=== PATIENT | male | born 1990 | race Caucasian/White ===

== ENCOUNTER 2018-08-05 15:30 | Outpatient (CLI) | payer MEDICAID, SELFPAY | END 2018-08-05 15:50 | PROVIDERS: PCP Family Medicine; Referring Provider Nurse Practitioner Family; Visit Provider Internal Medicine Infectious Disease | DX: B20 Human immunodeficiency virus [HIV] disease (principal); Z79.899 Other long term (current) drug therapy | CPT/HCPCS: 99215 ==

== ENCOUNTER 2018-09-09 10:03 | Outpatient (CLI) | payer MEDICAID, SELFPAY ==
--- NOTE | 2018-09-09 10:59 | DI.RAD_ITS ---
SYMPTOMS/DIAGNOSIS: DYSPNEA, PLEURAL EFFUSION, WT LOSS, B20, Z79.899, IMMUNOCOMPROMISED, SPLENOMEGALY, T CELL COUNT OF 34 PA AND LATERAL CHEST: No priors. The heart size and pulmonary vasculature are within normal limits. There are coarse lung markings seen in the right lower lobe. No focal consolidating infiltrates, effusions or pneumothoraces are identified. The bones appear intact. There are surgical clips in the right upper quadrant of the abdomen which may reflect prior cholecystectomy. IMPRESSION: Coarse lung markings in the right lower lobe. These may be chronic. Differential considerations include chronic scarring bronchiectasis. Airway disease can not be excluded. A CT scan of the chest should be considered in this patient for further evaluation.
[2018-09-09 12:26] LABS: Abs Immature Grans 0.49 k/cumm (0.0-0.09); HCT 31.5 % (40.0-50.0); Mean Corp. HGB Concentration 31.7 g/dL (32.0-36.0); Mean Corpuscular Hemoglobin 25.5 pg (27.0-33.0); Mean Corpuscular Volume 80.4 fL (80-95); Mean Platelet Volume 9.8 fL (8.0-11.0); RBC 3.92 m/cumm (4.50-6.00); RBC Distribution Width 17.3 % (11.8-14.1); White Blood Cell Count 12.13 k/cumm (4.4-10.8)
[2018-09-09 12:49] LABS: Absolute Lymphocyte Count 0.85 k/cumm (1.2-3.4); Absolute Monocyte Count 0.49 k/cumm (0.11-0.7); Absolute Neutrophil Count 10.67 k/cumm (1.2-6.7); Anisocytosis 2+; Diff Comment Manual Differential
[2018-09-09 12:50] LABS: Microcytosis 1+; Platelet Count 89 x1000/uL (130-400); Polychromasia Present
[2018-09-09 13:12] LABS: ALT 10 U/L (12-78); AST 11 U/L (15-37); Albumin 2.6 g/dL (3.4-5.0); Alkaline Phosphatase 80 U/L (46-116); Bilirubin, Direct 0.07 mg/dL (0.00-0.20); Bilirubin, Total 0.2 mg/dL (0.2-1.0); LDH 82 U/L (85-227); Total Protein 5.6 g/dL (6.4-8.2)
[2018-09-10 10:56] LABS: Hepatitis C Ab w Rflx HCV PCR Negative (NEGAT)
[2018-09-10 15:51] LABS: CMV Ab, IgM Negative (Negative); Toxoplasma Ab, IgG Negative (Negative); Toxoplasma Ab, IgM Negative (Negative); Toxoplasma IgG Value <3 IU/mL
[2018-09-11 12:54] LABS: EBNA IgG Positive; EBV Interpretation SEE COMMENTS; VCA IgG Positive; VCA IgM Positive
[2018-09-11 13:22] LABS: CMV DNA Detect/Quant, P Undetected IU/mL (Undetected)
[2018-09-11 14:43] LABS: TB Interpretation Negative (NEGAT); TB1 Ag minus Nil 0.01 IU/mL; TB2 Ag minus Nil 0.01 IU/mL
[2018-11-11 12:03] LABS: Susceptibility Slow Grower SEE COMMENTS
== END 2018-09-09 10:23 ==
PROVIDERS: PCP Family Medicine; Visit Provider Internal Medicine Infectious Disease
DX: R06.00 Dyspnea, unspecified (principal); J90 Pleural effusion, not elsewhere classified; R63.4 Abnormal weight loss; R16.1 Splenomegaly, not elsewhere classified; R91.8 Other nonspecific abnormal finding of lung field; B20 Human immunodeficiency virus [HIV] disease; Z79.899 Other long term (current) drug therapy
CPT/HCPCS: 36410; 36415; 80076; 86612; 86698; 86803; 87040; 87102; 87169; 87186; 71046; 83615; 85025; 86403; 86480; 86644; 86645; 86664; 86665; 86777; 86778; 87103; 87207; 87385; 87497

== ENCOUNTER 2018-09-09 16:23 | Outpatient (CLI) | payer MEDICAID, SELFPAY | END 2018-09-09 16:43 | PROVIDERS: PCP Family Medicine; Referring Provider Nurse Practitioner Family; Visit Provider Internal Medicine Infectious Disease | DX: B20 Human immunodeficiency virus [HIV] disease (principal); Z79.899 Other long term (current) drug therapy | CPT/HCPCS: 99215 ==

== ENCOUNTER 2018-11-01 13:25 | Outpatient (CLI) | payer MEDICAID, SELFPAY ==
--- NOTE | 2018-11-01 13:29 | W.CCNOTE ---
Date of service: 11/01/18 Time of Service: 13:29 Comprehensive Care Clinic Note Note: [facility] 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 He is taking all the medications as ordered and not missing any doses. He states he is having a lot of difficulty going up stairs, coming down is not so bad, and blames it on the neuropathic symptoms he is having in his LEs. He says today he is feeling less short of breath than last week. He went to [facility] a few days ago for the scheduled testing. He was supposed to have an EKG done to be sure he is not developing QT prolongation as a result of a potential interaction with MTD and the Azithromycin but when he went to the lab to have blood work done and the EKG, the EKG was not ordered and he was told he was to have a CXR. A CXR had not been ordered by this office but the EKG was and a copy of the order faxed to [facility] shows this. The blood work that was drawn was for CMP, a HIV PCR and the lab said they also are sending a CD4 panel but no mention of the CBCD that was also ordered. Prasanth was also to have blood work done for MTD level (random) which was faxed to them after as an add on but this was not drawn. Prasanth is seeing an bullard operator on Sunday,11/04/18, and his HIV MD on 11/11/18. He is to start Enambutol after seeing the ophtho MD. ROS: Weight- ? if losing. + night sweats. Feels dyspneic with activity but less than last week, the cough remains productive of clear sputum. Denies palpitations, pre-syncope/syncope. Is taking the Zofran every 4 hours for intermittent daily nausea which is not a change, he is not vomiting and has BMs every day stating the strain hurts his abdomen. He is eating at least three small meals a day + 1 can of BOOST. The paresthesias in his feet ar also in the forefront of the lower leg and interferes with lifting his leg to stair climb, R>L, and pins and needles pain which increases in certain positions. Over all energy level is very low - Allergies/Sensitivities: NKDA Current Medications: Biktarvy 50-200-25 mg tab 1 daily, Prezcobix 800-150 mg tab 1 daily, Ensure Plus 1 can bid, MTD 65 mg po daily, Bactrim Susp 200-40mg/5ml ? 10 ml a day, Azithromycin 500mg a day. Scheduled to start the Ethambutol after the dilated ophthalmology evaluation. This medication was not sent to his pharmacy in [place] and is to be sent from the [facility] where it was filled to the [place] [facility] when Prasanth will pick it up. Social History: Lives alone in an apartment with now one dog as he surrendered a rescue dog he felt he could no longer keep. He goes to the [facility] clinic now 4 times a week, M,W,Sat,Sun w a [facility] shuttle ride. [facility] has also put his on their ?critical list? so if he needs non ambulance transport in a hurry to medical appointments they will waive the 3 day notice for this to be accommodated. Health Insurance: Medicaid Substance Abuse History: Tobacco: Smoker: Type: Amount: Cigarettes 5 a day ETOH: None Illicit Drug Use: None RX Drug Dependence: MTD 65 mg a day at MAT clinic [facility] in [place] IVDU Hx? Last: 3 years ago Other Psychosocial Considerations: OBJECTIVE VS: 97.8, 112, 16 (less tachypnea than last week), BP 104/70. WT: 80# Lung with course breath sounds throughout and crackles at the bases. CV: RRR tachy rate, NO MCRG. Abd, mild distension, taut, tender especially in the LUQ, No ascites. Extremities w 1+ pitting edema of feet bilaterally, some scale between the toes, no open areas. Sensation is 4/5 with some hypoesthesia in the upper forefoot. ASSESSMENT/PLAN: HIV/AIDS w IRS and MAC taking all of the medications as ordered. Will await MTD level from the hospital and Prasanth says he will go next Sunday after dosing. He will also have the EKG done then. He will attend the ophtho appt. He will also keep his appointment with Dr. Muller, the ID Specialist. He will take his meds as ordered and take the ethambutol as ordered starting it after the ophtho eval as directed by the MDs. He is taking Ibuprofen 600mg tid with food and keeping his calories high. He may increase the Ibuprofen to qid w oofd and take Tylenol 1000mg qid as well. MD visit scheduled: 11/11/18 Lab Work: To return to the lab for additional tests as outline in HPI and to have the EKG done ASO referral: He is to meet with his ASO provider when he is at clinic on 11/11/18 Provider of Care: Julieta Torres NP
--- NOTE | 2018-11-04 13:31 | CCCE_ITS ---
Date of service: 11/01/18 Time of Service: 13:29 Comprehensive Care Clinic Note Note: [facility] 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 He is taking all the medications as ordered and not missing any doses. He states he is having a lot of difficulty going up stairs, coming down is not so bad, and blames it on the neuropathic symptoms he is having in his LEs. He says today he is feeling less short of breath than last week. He went to [facility] a few days ago for the scheduled testing. He was supposed to have an EKG done to be sure he is not developing QT prolongation as a result of a potential interaction with MTD and the Azithromycin but when he went to the lab to have blood work done and the EKG, the EKG was not ordered and he was told he was to have a CXR. A CXR had not been ordered by this office but the EKG was and a copy of the order faxed to [facility] shows this. The blood work that was drawn was for CMP, a HIV PCR and the lab said they also are sending a CD4 panel but no mention of the CBCD that was also ordered. Prasanth was also to have blood work done for MTD level (random) which was faxed to them after as an add on but this was not drawn. Prasanth is seeing an education administrator on Sunday,11/04/18, and his HIV MD on 11/11/18. He is to start Enambutol after seeing the ophtho MD. ROS: Weight- ? if losing. + night sweats. Feels dyspneic with activity but less than last week, the cough remains productive of clear sputum. Denies palpitations, pre-syncope/syncope. Is taking the Zofran every 4 hours for intermittent daily nausea which is not a change, he is not vomiting and has BMs every day stating the strain hurts his abdomen. He is eating at least three small meals a day + 1 can of BOOST. The paresthesias in his feet ar also in the forefront of the lower leg and interferes with lifting his leg to stair climb, R>L, and pins and needles pain which increases in certain positions. Over all energy level is very low - Allergies/Sensitivities: NKDA Current Medications: Biktarvy 50-200-25 mg tab 1 daily, Prezcobix 800-150 mg tab 1 daily, Ensure Plus 1 can bid, MTD 65 mg po daily, Bactrim Susp 200-40mg/5ml ? 10 ml a day, Azithromycin 500mg a day. Scheduled to start the Ethambutol after the dilated ophthalmology evaluation. This medication was not sent to his pharmacy in [place] and is to be sent from the [facility] where it was filled to the [place] [facility] when Prasanth will pick it up. Social History: Lives alone in an apartment with now one dog as he surrendered a rescue dog he felt he could no longer keep. He goes to the [facility] MAT clinic now 4 times a week, M,W,Sat,Sun w a [facility] shuttle ride. [facility] has also put his on their ?critical list? so if he needs non ambulance transport in a hurry to medical appointments they will waive the 3 day notice for this to be accommodated. Health Insurance: Medicaid Substance Abuse History: Tobacco: Smoker: Type: Amount: Cigarettes 5 a day ETOH: None Illicit Drug Use: None RX Drug Dependence: MTD 65 mg a day at MAT clinic [facility] in [place] IVDU Hx? Last: 3 years ago Other Psychosocial Considerations: OBJECTIVE VS: 97.8, 112, 16 (less tachypnea than last week), BP 104/70. WT: 80# Lung with course breath sounds throughout and crackles at the bases. CV: RRR tachy rate, NO MCRG. Abd, mild distension, taut, tender especially in the LUQ, No ascites. Extremities w 1+ pitting edema of feet bilaterally, some scale between the toes, no open areas. Sensation is 4/5 with some hypoesthesia in the upper forefoot. ASSESSMENT/PLAN: HIV/AIDS w IRS and MAC taking all of the medications as ordered. Will await MTD level from the hospital and Prasatnh says he will go next Sunday after dosing. He will also have the EKG done then. He will attend the ophtho appt. He will also keep his appointment with Dr. Muller, the ID Specialist. He will take his meds as ordered and take the ethambutol as ordered starting it after the ophtho eval as directed by the MDs. He is taking Ibuprofen 600mg tid with food and keeping his calories high. He may increase the Ibuprofen to qid w oofd and take Tylenol 1000mg qid as well. MD visit scheduled: 11/11/18 Lab Work: To return to the lab for additional tests as outline in HPI and to have the EKG done ASO referral: He is to meet with his ASO provider when he is at clinic on 11/11/18 Provider of Care: Julieta Torres NP
--- NOTE | 2018-11-08 16:10 | W.CCNOTE ---
Date of service: 10/24/18 Time of Service: 16:10 Comprehensive Care Clinic Note Note: [facility] [address] [place] [address] Comprehensive Care Clinic [facility] Follow Up Visit Name: Jason Bashir Date of : 1990 Date of Service: 10/24/2018 SUBJECTIVE: ?I feel the spleen pain is more off and on now. I?m taking the medications.? HIV F/U, New Dx OI MAC. Started Azithromycin 500mg a day and will take for [address] Muller in [place] last , 11/17/18. Started the Azithromycin the next day, 10/18/18 after having a normal EKG at [facility]. Denies any ASEs to the Azithromycin. ?I don?t have any worse N/V and the Zofran help that.? To start Ethambutol 600mg a day for 90 days after 1 ? 2 weeks of the Azithromycin to be sure there are no ASEs. ROS: Weight is stable ? not losing more. Still has night sweats. Feels very dyspneic with activity and has a cough productive of clear sputum. Denies palpitations, pre-syncope/syncope. Denies N/V/D and is taking the Zofran every 4 hours which is not a change. He is eating at least three small meals a day and taking the 1 can of BOOST supplement. Continues to C/O paresthesia in his feet, R>L, and pins and needles pain which increases in certain positions ? ?my foot also feels more swollen than it is.? Over all energy level is very low - ?I?m just really exhausted. Getting up the steps to the clinic (MAT) every day to get the MTD is getting really tough. I think about skipping dosing but I know that would not be good, I want to take all the medication I need now like I?m supposed to take it.? Allergies/Sensitivities: NKDA Current Medications: Biktarvy 50-200-25 mg tab 1 daily, Prezcobix 800-150 mg tab 1 daily, Ensure Plus 1 can bid, MTD 65 mg po daily, Bactrim Susp 200-40mg/5ml ? 10 ml a day, Azithromycin 500mg a day. Next week scheduled to start the Ethambutol for which he will need a dilated ophthalmology evaluation and F/U. Social History: Lives alone in an apartment with now one dog as he surrendered a rescue dog he felt he could no longer keep. He goes to the [facility] MAT clinic daily w a [facility] shuttle ride. [facility] has also put his on their ?critical list? so if he needs non ambulance transport in a hurry to medical appointments they will waive the 3 day notice for this to be accommodated. Health Insurance: Medicaid Substance Abuse History: It has been over 3 years since prasanth used drugs IV. He is stable in MAT treatment with MTD. No other drug abuse, UDSs negative/appropriate. Tobacco: Smoker Y, Type: Cigarettes, Amount: ? - ? ppd ETOH: None Other Psychosocial Considerations: Prasanth?s parents (who adopted him as a baby) live in [place] and are supportive. Update Family History: Unknown other than his Mother was IVDU and HIV+ Immunization History: See Dr. Muller?s note dated 10/17/2018 as it outlines Prasanth?s imms and titers. Health Maintenance/ID Screening: Many screening drawn in August at [facility] for OIs and the Gold Quantiferron was negative. Everything else was also negative until the fungal culture, after a number of weeks incubation, showed probably MAC OBJECTIVE Temp: 97.8, Pulse: 103, Resp: 20, BP: 114/60 General: tachypnea, pale, fatigued but not prostate, walking slowly with steady gait for short distances. 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 He is to start Ethambutol 600mg a day and [facility] pharmacy in [place] is called with the prescriptions: Ethambutol 100 mg 2 tabs a day and Ethambutol 400mg 1 tab a day for 90 days. They will order it and Prasanth knows to call on Sunday to check on the status of this RX as it has to be ordered. He will see Dr. Jhon Briceno MD in [place] of the Ophthalmology evaluation and follow up as well. A [facility] rise may be needed for this visit. I will contact Prasanth at least weekly and meet with him every 2 weeks to follow his progress with all this treatment. He will continue to take the HIV medications and the Zofran daily as RXd. MD visit scheduled: Nov 11 at noon, sooner if needed. Lab Work: He is to have blood work and a 2nd EKG done at [facility] on Sun10/30/2018 Provider of Care: Julieta Torres NP
== END 2018-11-01 13:45 ==
PROVIDERS: PCP Family Medicine; Visit Provider Nurse Practitioner Family
DX: B20 Human immunodeficiency virus [HIV] disease (principal); Z79.899 Other long term (current) drug therapy; A31.9 Mycobacterial infection, unspecified; G62.9 Polyneuropathy, unspecified; D89.3 Immune reconstitution syndrome
CPT/HCPCS: 99214

== ENCOUNTER 2019-02-21 17:55 | Outpatient (CLI) | payer MEDICAID, SELFPAY ==
--- NOTE | 2019-02-21 17:58 | W.CCNOTE ---
Date of service: 02/21/19 Time of Service: 17:58 Comprehensive Care Clinic Note Note: [facility] [address] [place] [address] [facility] Follow Up Visit Name: Jason Rubalcava Date of : 1990 Date of Service: 02/21/2019 SUBJECTIVE: This is a home hospital follow up visit for status check as Mario was discharged from [facility] on 02/18/2019, after a protracted hospitalization starting first at [facility] in Oct. and soon after transferred to [facility] in [place] where he stayed for 6 weeks, had medication changes, a splenectomy as it became necrotic and J tube placement as the peg tube originally place failed.. He was then transferred back to [facility] for healing, nutritional support and further medication adjustments. He has had continuous nutritional infusions that are to be continuing. He had AIDS wasting prior to all this with a weight down to 74#s that went than down to 65 lbs. post op but he gained 10 pounds during the latter part of the hospitalization. His appetite is good now as prior to and right after the splenectomy he was not able to eat more than a few bites without marked increase in abdominal pain and worsening nausea at times w some vomiting. Since D/C he has been to the methadone clinic, [facility] ([facility] initially on 02/19/2019, and met with the medical staff coordinator, Dr. Adrien Vance, and his counselor, Shayla Finch, to make a plan for continued MAT and then again today to dose. He will be going into the clinic on Tuesdays and Fridays and will have take home doses for the other days of the week. His current dose of methadone is 70mg a day. He will meet with his counselor there weekly and the [facility] RD/Pharmacy Assistant, Jayashree Martínez, will meet Mario there next 02/27/17. He will be seeing his PCP, Dr. Ocasio on 02/25/19, and his HIV MD, Dr. Muller, on 03/03/19. He has an appointment with Dermatology at [facility] on 03/14/19 at 3:30pm. Appointments for Ophthalmology will need to be arranged for monthly checks due to the ethambutol. He has a home health RN from [facility] three times a week and is already becoming independent in his feeding tube nutritional supplement pump and changing the bag, tubing and pump cassette. He has his many medications lined up on a table in front of him and has a schedule for all of them. He has D/C paperwork from [facility] which is guiding him to take the medication correctly and he is charting each dose on it. He and his Mother are planning to make up a big chart to keep track of it ongoing. Mario wants a hospital bed with an alternating pressure mattress because he has a sacral pressure ulcer. This ulcer had stared prior to the hospitalization, it was being treated with medihoney/zinc dressings and tegaderm. He is up and showering daily but has not continued the upper and lower body strengthening exercises that were given to him at [facility]. Mario feels he is continuing to gain weight and stamina. He goes out every day and this morning after dosing at [facility] he went shopping for food stating he walked into the store, sat in a scooter cart to shop and he and his Mother carried the purchases to the car. He is planning to get up and walk a few times a day but admits that between the medications and the tube feedings, it seems like it is multimedia instructional designer. ?It is a lot but I am keeping up with it.? He states that other than not having the gabapentin, which will be available in liquid form at the pharmacy today, he has had all his medications. He missed Weds Bactrim, again due to waiting for liquid, but took it later than night and is back on track. 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 500mg a day, biscodyl 10 mg pr prn, clarithromycin liquid 250mg per j tube bid, darunavir ethanolate 600mg daily, dolutegravir 50mg daily, emtricitabine/tenofovir 200-300mg daily, ferrous sulfate 65 mg qHS, gabapentin 100mg tid, lidocaine 4% topical 1 24 hours, megestrol acetate 800mg daily, methadone (MAT) 70mg daily, nicotin 14 mg patch daily, nystatin 500,000 iu po qid, ondansetron 4mg q 12 hrs prn, polyethylene glycol 3350 17 gm bid, prochlorperazine maleate 5mg q 6hrs, rifabutin 150mg q HS, ritonavir 100mg daily, scopolamine 1 mg patch q 3 days, sennosides 26.4 mg bid, simethicone 80mg q 6 hrs prn, sulfamethoxazole/trimethoprim 200-40mg daily, triamcinolone acetonide 0/1% cream ? use sparingly on rash of bilateral Les. Social History: Mario is staying on the first floor of his parent?s home sleeping on a couch. He says his Father has been maintaining his apartment and he is planning to return there whenever he is strong enough to walk extended distances and climb two flights of stairs. His parents have other of their adult adopted children and their sig others living with them as well, some with disabilities of their own. Four of Mario?s sister?s visited him when he was at [facility], one traveling from [place], others from out of [facility], one who came daily for the first month. He feels he has good emotional support from family and they are accommodating him with meal prep. Substance Abuse History: Tobacco: Smoker: Not now ? has the nicotine patch ETOH: No Illicit Drug Use: not for years, stable on MAT w methadone Other Psychosocial Considerations: Has applied for SSDI and needs to do this again, Will discuss with HIV Case Worked at [facility] Update Family History: Adopted OBJECTIVE Last T cell count 47 (was 5 two harris ago), VL undetectable on 02/11/19. Temp: 99.0 Pulse: 70 Resp: 16 BP: 94/60 Weight: No scale ?I?m getting one tomorrow?, he says. General: very cachectic, frail but with good eye contact w bright eyes and no distress. He is standing with some effort and moving slowly about the area where he is sleeping on the couch ? steady on his feet for the few steps he was taking. He stood for 15 minutes for the home health RN to cleanse and change the sacral dressing without interruption but was a bit fatigued when he sat back down. He was able to open the tube feeding pump, change the tubbing and bag and replace the cassette and reattach the tubing to his j tube with minimal direction from the RN. He ate a whole bowl of oatmeal while visiting with us and has a turkey sub ? ?with extra meat? - he will eat for lunch in about 1 2- hours. Skin: The ulcer remains open in 3 sections w some yellow escar remaining, is clean. The fungal rash on the LEs is not erythematous but remains in scattered small patches. No open areas of his legs or arms. The J tube site has a dry dressing. The abdominal surgical wound is pink having healed by some secondary intention but is clean and dry. Eyes: non icteric and bright Cardiac: RRR, no murmur or rub Chest/Lungs: clear Abdomen: visual exam only Extremities: no edema Musculoskeletal: profound muscle wasting, joints without swelling and has FROM Psych: has clean sweat pants and shirt, eye contact good, cooperative, normal speech, appropriate affect, mood minimally anxious, orientation, judgement and attention intact, logical thought process w normal content ? realistic goals for the short term, insight seems fair. ASSESSMENT/PLAN: 1. HIV/AIDS (congenital) w dMAC, Wasting now consistently on HAART for 11 months w minimal increase in the CD4 count but still a ? of IRIS. Had a prednisone taper after the splenectomy. No rebound fevers noted since D/Cd to home. 10 antimicrobial meds w a very complicated regimen but is keeping documentation of taking every dose. No change in meds. Does not need CD4 count or VL but needs CMP next week and ophthalmology arranged. 2. Severe malnutrition w protein deficiency and anemia, Acute on Chronic, w low platelets despite HIV VL undetectable. Continue the continuous tube feedings, well balanced meals, supplementations, and hydration. His frail frame needs daily physical therapy exercises, which he says he will start again now, and encouragement to follow through with advancing his physical activities to gain stamina. A request is made for his PCPs office to order Home Health PT to come in and add to the exercises as he hopefully will advance. 3. Decubitus sacral ulceration. Continue home health nursing visits 3x/week and the medihoney/zinc dressings q 2-3 days w changes advancing to collagen dressings when the open areas are cleaned of escar. A request is made for his PCPs office to order a hospital bed with an alternating pressure mattress. MD visit scheduled: As in Subjective ? keep all appointments. An appointment will be made for February with the insurance claims assistant who originally saw him in [place] and Ophtho notes from [facility] EMR will be sent to their office. I will check in with Mario on 02/24/19, when I am in the [facility] office and weight him that day. Lab Work: CMP to be done at the end of next week. ASO at [facility] notified of his D/C and to set up a meeting soon. Provider of Care: Julieta Torres NP
== END 2019-02-21 18:15 ==
PROVIDERS: PCP Family Medicine; Visit Provider Nurse Practitioner Family
DX: B20 Human immunodeficiency virus [HIV] disease (principal); Z79.899 Other long term (current) drug therapy; A31.2 Disseminated mycobacterium avium-intracellulare complex (DMAC); R64 Cachexia; L89.90 Pressure ulcer of unspecified site, unspecified stage
CPT/HCPCS: 99215

== ENCOUNTER 2019-03-03 15:56 | Outpatient (CLI) | payer MEDICAID, SELFPAY | END 2019-03-03 16:16 | PROVIDERS: PCP Family Medicine; Referring Provider Nurse Practitioner Family; Visit Provider Internal Medicine Infectious Disease | DX: B20 Human immunodeficiency virus [HIV] disease (principal); Z79.899 Other long term (current) drug therapy | CPT/HCPCS: 99215 ==

== ENCOUNTER 2019-04-14 12:29 | Outpatient (CLI) | payer MEDICAID, SELFPAY ==
--- NOTE | 2019-04-14 12:30 | CCCE_ITS ---
Date of service: 04/14/19 Time of Service: 12:29 Comprehensive Care Clinic Note Note: [facility] [address] [place] [address] Comprehensive Care Clinic [facility] Follow Up Visit Name: Jason Rubalcava Date of : 1990 Date of Service: 04/14/2019 SUBJECTIVE: This is a brief follow up visit for status check, to renew some medications he will be out of before the end of the week and to set up his next appointment with his HIV specialist MD. He states he is feeling stronger and gaining weight. His j tube feedings are just at night now and his appetite is good. He has some abdominal bloating and went to the ER last week for the discomfort. He has an x-ray that showed stool and trapped gas, he was advised to increase the Miralax to bid. He thinks this is helping. He has been able to keep up with his meds and has not missed any doses. Mario was discharged from [facility] on 02/18/2019, after a protracted hospitalization starting first at [facility] in Oct. and soon after transferred to [facility] in [place] where he stayed for 6 weeks, had medication changes, a splenectomy as it became necrotic and J tube placement as the peg tube originally place failed.. He was then transferred back to [facility] for healing, nutritional support and further medication adjustments. He has had continuous nutritional infusions that are to be continuing. He had AIDS wasting prior to all this with a weight down to 74#s that went than down to 65 lbs. post op but he gained 10 pounds during the latter part of the hospitalization. 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 500mg a day, biscodyl 10 mg pr prn, clarithromycin liquid 250mg per j tube bid, darunavir ethanolate 600mg daily, dolutegravir 50mg daily, emtricitabine/tenofovir 200-300mg daily, ferrous sulfate 65 mg qHS, gabapentin 100mg tid, lidocaine 4% topical 1 24 hours, megestrol acetate 800mg daily, methadone (MAT) 70mg daily, nicotin 14 mg patch daily, nystatin 500,000 iu po qid, ondansetron 4mg q 12 hrs prn, polyethylene glycol 3350 17 gm bid, prochlorperazine maleate 5mg q 6hrs, rifabutin 150mg q HS, ritonavir 100mg daily, scopolamine 1 mg patch q 3 days, sennosides 26.4 mg bid, simethicone 80mg q 6 hrs prn, sulfamethoxazole/trimethoprim 200-40mg daily, triamcinolone acetonide 0/1% cream ? use sparingly on rash of bilateral Les. Social History: Mario is staying on the first floor of his parent?s home and has a hospital bed with an alternating pressure mattress. He feels he has good emotional support from family and they are continuing to assist him and accommodating him with meal prep. Substance Abuse History: Tobacco: Smoker: Not now ? has the nicotine patch. ETOH: No Illicit Drug Use: not for years, stable on MAT w methadone OBJECTIVE Temp: 98.6 Pulse: 70 Resp: 16 BP: 106/60 Weight 99# General: less cachectic but remains frail but in no distress. Ambulatory with erect gait moving with ease still using the quad cane for light assist. Skin: The decubitus ulcer is very shallow and less than 1 inch long. It is clean. Eyes: non icteric and bright Cardiac: RRR, no murmur or rub Chest/Lungs: clear Abdomen: visual exam only Extremities: no edema Musculoskeletal: profound muscle wasting, joints without swelling and has FROM Psych: has clean sweat pants and shirt, eye contact good, cooperative, normal speech, appropriate affect, mood euthymic, orientation, judgement and attention intact, logical thought process w normal content ? realistic goals for the short term, insight seems fair. ASSESSMENT/PLAN: 1. HIV/AIDS (congenital) w dMAC, Wasting now consistently on HAART for 13 months. He is keeping up with dosing with the 10 antimicrobial meds 9a very complicated regimen) and doing a very good job of it by keeping documentation of taking every dose. No change in meds today. Does need CD4 count & VL soon and to see Dr. Muller when he is next here next week. That appointment is set for 10:30am on 05/22/19. A renewal for Bactrom 200-40mg solution, 10ml a day has been called into [facility]. 2. Severe malnutrition w protein deficiency has improved and he is gaining weight. Continue the 8pm to 8am tube feedings, well balanced meals, supplementations, and hydration as well as the daily physical therapy exercises to gain more stamina. 3. Decubitus sacral ulceration markedly improved. Continue home health nursing visits 1x/week now with minimal dressing and the alternating pressure mattress. Lab Work: he has the orders to do these at [facility] ASO at [facility] to continue. Provider of Care: Julieta Torres NP
== END 2019-04-14 12:49 ==
PROVIDERS: PCP Family Medicine; Visit Provider Nurse Practitioner Family
DX: B20 Human immunodeficiency virus [HIV] disease (principal); Z79.899 Other long term (current) drug therapy; R63.4 Abnormal weight loss
CPT/HCPCS: 99213

== ENCOUNTER 2019-06-23 16:30 | Outpatient (CLI) | payer MEDICAID, SELFPAY | END 2019-06-23 16:50 | PROVIDERS: PCP Family Medicine; Referring Provider Nurse Practitioner Family; Visit Provider Internal Medicine Infectious Disease | DX: B20 Human immunodeficiency virus [HIV] disease (principal); Z79.899 Other long term (current) drug therapy; A31.2 Disseminated mycobacterium avium-intracellulare complex (DMAC); R64 Cachexia; Z23 Encounter for immunization | CPT/HCPCS: 90471; 90472; 90686; 90734; 99215 ==

== ENCOUNTER 2020-01-09 06:00 | Outpatient (CLI) | payer MEDICAID, SELFPAY ==
--- NOTE | 2020-01-12 09:35 | CCCE_ITS ---
Date of service: 01/09/20 Time of Service: 13:30 Comprehensive Care Clinic Note Note: [facility] [address] [place] [address] Date of Service: January 09, 2020 Jason Rubalcaav 1990 PCP: Dr. Ocasio in [place] SUBJECTIVE Mario is seen face 2 face (F2F) in [place] today during his every 2 weeks dosing and pick up attendant of medication at the methadone clinic. This was arranged to help protect him from extra potential exposure to SARS-CoV2 and for his convenience as he has been non adherent with MD follow-up, having his blood work done, or answering his phone since the fall. Late last month he did pick up attendant the phone when I called and agreed to having a phone consult follow up appointment w Dr. Muller as no F2F visits for well individuals were happening for patients in the infectious diseases clinics or at the hospital due to SARS-CoV2 pandemic. Unfortunately, he did not respond when Dr. Muller called at the appointed time and on 2 other attempts. CC/HPI: Mario has been having difficulty eating due to mouth & throat tenderness from Thrush and the Nystatin doesn't seem to be helping much. He says that about 3 weeks ago he was at the office of his PCP, Dr. Ocasio, and weighed 87#. The highest weight we had recorded on Mario since his almost 3-month hospitalization for advanced AIDS, dMAC and a splenectomy was 100#, That was last July. He is now living in his own apartment; says he has not been out of his apartment s cesar the Stay at Home order from the Governor except every other Sunday when he goes to the methadone clinic. His parents have been doing grocery shopping for him and dropping the parcels off at his front door. He is eating small amounts of soft food such as mac and cheese a few times a day and drinking water and temitope aid. He is still drinking 2 cans of BOOST a day. He is home with his dog and has no contact with others except his family by phone. He has not talked with his counselor nor felt the need. Playing games on line and watching movies. Does not think he is more depressed than usual. He states he is taking his medication daily and not missing but cannot tell me what he is taking. He also has medications from Dr. Ocasio taking the Zofran daily and prn constipation medication. He is also swishing and swallowing Nystatin. ROS: He says he is always fatigued and this is not new, sleep is ok and he naps every afternoon - maybe just bored.... Weight is down, has some night sweats b ut denies fever, chills, rash, other skin lesions & warts are no worse. Denies headache, visual or other special sensory changes. He has paresthesia in his feet but denies swelling. Denies cough, dyspnea, palpitations or chest pain; has q AM N/V if he doesn't take Zofran, some constipation and has meds for this, denies diarrhea. He is having no urinary symptoms of tea colored urine. Denies HI/SI but says he has a big block in his head to getting blood drawn and it is not a fear of the needles it is just about having it done and thinks it is because of so much blood work being done in the hospital. Medications he is taking now (I called him after he got home so he could read the bottle labels): Truvada, Presista, Tivicay - From Dr. 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 It comes from the [facility] pharmacy and stopped coming. Also the Truvada comes from them and I want it to come to [facility] in [place]. He has not been drinking ETOH nor smoking tobacco but is smoking some pot. No illicit drugs. OBJECTIVE - Frail, ambulatory INAD, weight 81#, T: 97.9, P: 90, R: 18, BP: 106/60, wearing a face mask. - Skin pale, w/d and no rash seen, large warts on his fingers w/o change - Face w symmetry, pupils 6mm, non-icteric nor injected - Oral/Pharynx: There is erythema w/o swelling and large amounts of white exudate on the soft palate, tongue and pharynx - Neck supple, no adenopathy - Breath sounds full and clear - CV: RRR no MCRG - Abd: Soft bowel sounds, no distended, large midline surgical scar well healed with palpable right abd musculature spasm and tenderness, No palpable OGM but exam limited by abd wall tenderness. - No peripheral edema. - No tremor, gait side to side but steady. - He is wearing clean clothing and his hair is long and unkempt, eye contact is fair, attitude is cooperative, speech is normal, mood is depressed and affect is at times flat, orientation and attention are intact, insight is fair and judgement is moderately impaired. ASSESSMENT & PLAN HIV/AIDS - advanced, dMAC now no treatment, frail w weight loss and Thrush. - Called in a RX for Fluconazole 100mg tabs to start today and take daily. - #30 w 2 refills. May continue the Nystatin for comfort. - Will consult with Dr. Muller as to what medications Mario is supposed to be taking at his point and where to go with this now. - I offered (once again) to draw blood for lab work right at the methadone clinic and take it to [facility] lab. After a long discussion of this he will consider it and says he trusts me to do it but the mental block is so strong. We made a tentative date for this to be done in 2 weeks. - He agrees to answer my phone calls and have another phone appointment set up with Dr. Muller in the near future. Julieta Torres NP, (t) 01/09/2020 Addendum: 01/12/2020 - Consultation with Jimmy Muller, , ID [facility], and will call in Ritonavir 100mg tabs, 1 a day to complete his HIV medications regiment as a booster to the PI. With Mario's history of advanced AIDS and S/P Spleenectomy it is unknown at this point what benefit he would get given the risks of restarting the ethmabutol and clarithromycin. When he was taking, he did not have the recommended ophthalmology evaluations and blood work to monitor for toxicities to the medications. Also these medications had so many significant interactions with so many HIV medications that his more easily tolerated prior regimen of Biktarvy and Prezcobix, 1 pill each once a day, needed to be changed to the current, more complicated one. Besides having dMAC, he is also at high risk for multiple other OIs and I will call the pharmacy to be sure he has the Bactrim he is supposed to be taking daily for Pneumocystis pneumonia prophylaxis. His Medicaid health insurance remains active. Phone calls to Mario this morning have not been answered. sgt copy to: Ana Ocasio MD and Hermila Muller, DO
== END 2020-01-09 06:20 ==
PROVIDERS: PCP Family Medicine; Visit Provider Nurse Practitioner Family
DX: B20 Human immunodeficiency virus [HIV] disease (principal); Z79.899 Other long term (current) drug therapy; A31.2 Disseminated mycobacterium avium-intracellulare complex (DMAC); R64 Cachexia; B37.81 Candidal esophagitis
CPT/HCPCS: 99348

== ENCOUNTER 2020-01-23 08:00 | Outpatient (CLI) | payer MEDICAID, SELFPAY | END 2020-01-23 08:20 | PROVIDERS: PCP Family Medicine; Visit Provider Nurse Practitioner Family | DX: B20 Human immunodeficiency virus [HIV] disease (principal); Z79.899 Other long term (current) drug therapy; A31.2 Disseminated mycobacterium avium-intracellulare complex (DMAC); R64 Cachexia | CPT/HCPCS: 80053; 87535; 99350; 84100; 85025; 86359; 86360 ==

== ENCOUNTER 2020-01-23 10:40 | Outpatient (REF) | payer MEDICAID, SELFPAY ==
[2020-01-23 11:02] LABS: HCT 28.4 % (40.0-50.0); HGB 9.6 g/dL (13.5-17.5); Mean Corp. HGB Concentration 33.8 g/dL (32.0-36.0); Mean Corpuscular Hemoglobin 26.9 pg (27.0-33.0); Mean Corpuscular Volume 79.6 fL (80-95); RBC 3.57 m/cumm (4.50-6.00); RBC Distribution Width 18.3 % (11.8-14.1)
[2020-01-23 11:09] LABS: ALT 14 U/L (16-63); AST 20 U/L (15-37); Albumin 2.9 g/dL (3.4-5.0); Alkaline Phosphatase 203 U/L (46-116); Anion Gap 8.6 mmol/L (3-11); BUN 15 mg/dL (7-18); Bilirubin, Total 0.4 mg/dL (0.2-1.0); CO2 27.4 mmol/L (21.0-32.0); CREATININE 0.85 mg/dL (0.70-1.30); Calcium 8.4 mg/dL (8.5-10.1); Chloride 99 mmol/L (98-107); Glucose 88 mg/dL (74-106); PHOSPHORUS 2.5 mg/dL (2.6-4.7); Potassium 4.3 mmol/L (3.5-5.1); Sodium 135 mmol/L (136-145); Total Protein 6.7 g/dL (6.4-8.2)
[2020-01-23 12:03] LABS: White Blood Cell Count 24.24 k/cumm (4.4-10.8)
[2020-01-23 12:04] LABS: Absolute Eosinophil Count 0.48 k/cumm (0.0-0.7); Absolute Lymphocyte Count 0.97 k/cumm (1.2-3.4); Absolute Monocyte Count 1.94 k/cumm (0.11-0.7); Absolute Neutrophil Count 19.88 k/cumm (1.2-6.7); Platelet Count 842 x1000/uL (130-400)
[2020-01-23 12:05] LABS: Anisocytosis 2+; Diff Comment Diff Reviewed; Howell-Jolly Bodies Present; Hypochromasia 3+; Microcytosis 1+; Other Cells 3
[2020-01-23 12:06] LABS: Ovalocytes 2+; Poikilocytes 3+; Target Cells 2+
--- NOTE | 2020-01-23 14:00 | CCCE_ITS ---
Date of service: 01/23/20 Time of Service: 08:00 Comprehensive Care Clinic Note Note: [facility] [address] [place] [address] Follow Up Medical Visit Name: Veronika Rubalcava [facility] Date of : 1990 Primary Care Provider: Freddy Ocasio MD Date of Service: 01/23/2020 [facility] SUBJECTIVE CC: ?I?m swallowing better with less pain since starting the Diflucan and I think the Nystatin is still helping.? This is a follow up visit with Prasanth in [place], [place] where he lives, as he was last seen here 2 weeks ago. He had stopped a number of medications, had developed significant oral and S&S of esophageal thrush and was losing more weight. HPI: Prasanth has advanced AIDS (Congenital HIV) with dMAC and recurrent esophageal thrush with wasting and is S/P a splenectomy last year after a protracted hospitalization of about 3 months. He had not had his blood drawn for f/u lab work since D/C last January and we made this appointment for a recheck that he had gotten the Ritonovir and Bactirm which he had last picked up in Aug 2019 to take along with the Prazista, Tivicay and Truvada. He had not been taking the ethambutol and Augmentin since earlier in the year either. He has continued the 2 BOOST a day and has been able to eat more and advance his diet. He does not think he has lost any more weight. ROS - Constitutional: ?I?m eating a lot, sleeping ok ? taking a nap every day, have some night sweats.? Denies fever but is fatigued w activity. Skin: No new rash Head: No headache Eyes: Denies visual changes Ear/Nose/Throat: Less sore throat and less pain with swallowing Mouth/Teeth: no teeth Neck: no stiff neck CV: denies chest pain, palpitations Respiratory: denies dyspnea, cough GI: has daily N/V w/o Zofran, Has some constipation but moving bowels ok : neg Musculoskeletal: no joint pain Endocrine: no excessive thirst, cold intolerance Lymphatic: No enlarged nodes noted Hematologic: No unusual bruising/bleeding Allergies/Sensitivities: NKDA Current Medications: As above in HPI Social History: Adopted as an ? born in [place] Housing: Lives in his own apartment w his dog, Parents bring him groceries and leave outside his door due to SARS CoV2 pandemic. He only goes out once every 2 weeks to go to the Methadone clinic. Denies any illicit drugs and no ETOH OBJECTIVE Weight: 83, Temp: 96.9, Pulse: 88, Respirations: 16, Blood Pressure: 102/60 General: Frail, AINAD Skin: Clear, pale, W/D Head: non traumatic Eyes: non icteric, pupils 4mm Ears/Nose: clear Mouth/Teeth: small areas of white patches in the soft pallet, less erythema that 2 weeks ago Pharynx: no edema but mild erythema Neck: supple CV/Pulses: RRR Chest Lungs: Clear Abdomen: tender along the surgical scar Extremities: no edema Musculoskeletal: no joint swelling or erythema Neuro: gait strong and steady, no tremor Lymphatic: no palpable nodes Psychiatric: - appearance: well groomed - eye contact: good ? 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 ?I know I have a mental block for blood work and following up?? - insight: fairly good ASSESSMENT/PLAN HIV/Advanced AIDS w Wasting, Recurrent Esophageal Thrush and dMAC now not treated as he self D/C the antibiotics ethambutol and Augmentin. He is taking the ART that was changed at [facility] due to interactions with the Ethambutol but he would be interested to go back on the Biktarvy and Precobix if possible. He is willing to have conversations about the results of the blood work drawn today for CBCD, CMP, CD4 immunodeficiency panel and HIV PCR as well as the AFB blood culture. Results will be sent to Dr. Muller at [facility] and a tele-health appointment will be scheduled after they are available. I will check prasanth?s weight again in about a month in [place]. MD visit scheduled: When lab results available - zoom tele-health Social Work/Psychiatry referral: Encouraged he contact [facility] and to keep in touch with his counselor Lab work ordered - CBCD - CD4/8 Immunodeficiency Panel - Comprehensive Metabolic Profile - Phosphorus - HIV RNA PCR Quantitative - AFB blood culture Provider of Care: Julieta Torres, MSN, FISHING TOOL SUPERVISOR 01/23/2020 1:00pm Email note from Jimmy Muller DO - Infectious Diseases, [facility]: Thanks Julieta, great job! We got called by the [facility] lab about critical results (see my note I entered in [facility] today) but his WBC and platelets are really improved compared to last year so nothing that makes me nervous. Lets see what his CD4 and VL show and then, I think it would be reasonable to go back to Biktarvy/Prescobix. More to follow. I will ask my team to scan and enter the labs into [employer]Cap. - This is the note entered into RedCap: ?Julieta was able to connect with Prasanth early this morning up in [place] and he allowed her to draw his blood. The last time he agreed to a lab draw was January 2019, a full year ago. Patient confirmed that he is indeed now on all the appropriate ART (patient had not been taking his ritonavir some reason) and ta sabine his Bactrim as well. Patient indicated he would like to go back to Biktarvy and Prescobix which I think we can do as long as his labs look okay. Of note, patient was doing well on his ART until he had to be changed due to drug-drug interactions with his MAC medications which he self discontinued back in October so it really does not matter. With such a low baseline CD4 count, my initial approach was to leave him on his anti-MAC meds long-term until his counts recovered. However, as these meds have significant toxicities and drug drug interactions and the patient was reluctant to follow-up with me or even get labs/eye exam, I do not think it safe to restart these meds. We got in critical results call from the lab in [facility] this morning. Patient's white blood cell count is 24, H&H is 9.6/28.4, platelets are 842. Labs noted large mononuclear cells sent for pathology review with a concern for questionable immature, possible blast-like cells. I am wondering if these changes are just secondary to his splenectomy in 2018. Based on the last labs we have from him from January 2019, his white blood cell count and platelets are very similar. His creatinine is 0.85, AST 20, ALT 14, albumin 2.9. Once we get the CD4 count and HIV viral load back, we will try to connect with the patient and develop a way forward?
[2020-01-24 14:29] LABS: CD3 57 % (62-87); CD4 3 % (35-63); CD8 50 % (10-35)
[2020-01-29 03:49] LABS: HIV-1 RNA Qualitative, P Detected (Undetected)
[2020-04-16 10:39] LABS: Misc Referral (UVM) See Comments
== END 2020-01-23 11:00 ==
LOC: LBN 10:40
PROVIDERS: PCP Family Medicine; Visit Provider Nurse Practitioner Family
DX: B20 Human immunodeficiency virus [HIV] disease (principal); Z79.899 Other long term (current) drug therapy; A31.2 Disseminated mycobacterium avium-intracellulare complex (DMAC); M62.559 Muscle wasting and atrophy, not elsewhere classified, unspecified thigh
CPT/HCPCS: 80053; 83655; 87535; 99350; 84100; 85025; 86359; 86360

== ENCOUNTER 2020-02-06 16:55 | Outpatient (CLI) | payer MEDICAID, SELFPAY ==
--- NOTE | 2020-02-06 17:16 | W.CCNOTE ---
Date of service: 02/06/20 Time of Service: 06:00 Comprehensive Care Clinic Note Note: [facility] [address] [place] [address] [facility] of [facility] Visit for Medical Follow Up Name: Mario Loya Medical Record# [id number] Date of : 1990 Primary Care Provider: Freddy Ocasio MD Date of Service: 02/06/2020, 6:00AM - This is a face to face home visit SUBJECTIVE CC: Mario is seen today due to concerns about weight loss, loss of T cells, OIs, non-adherence to medications schedule and follow up appointments. This is a face 2 face visit in [facility] due to Mario not driving with ongoing transportation issues. His main complaint today is the ongoing intermittent abdominal wall pain (reproducible with movement) and rash and itching of his trunk with scale and worsening yeast in his mouth now encroaching the corner of his lips. HPI: Mario had blood work done 2 weeks ago after avoiding it for about a year. His last blood work was done prior to his D/C from the hospital last January after a 3+ month inpatient stay at both [facility] and [facility]. He did not come to monthly follow visits at [facility] in [facility], the last with Dr. Muller was May 2019. He did not sisal picker the phone for scheduled phone follow up late last month after Dr. Muller tried to call 3 times in an attempt to have a follow up conversation. Mario also says he was not able to get the Fluconazole at [facility] when he went to pick it up and the Ritonavir was not there either. He has had the powder Ritonavir and since the j tube was removed he found it unpalatable and has not taken it. He did not communicate this to anyone at the time. When asked to name the medications he is taking, he can only remember some of them but says he is taking the Bactrim. ?I had the banana flavored liquid.? ROS Constitutional: Chronic low energy, states his appetite is good, sleep is good and he does not have night sweats. Weight loss seems to continue ? ?..even though I?m eating a lot.? Skin: The rash on the trunk is scaly and when he scratches it ?lots of scales and flakes come off?. No reoccurrence of the rash that was fungal on his legs. Head: Denies trauma, head pain/head ache Eyes: Denies visual disturbance. Ear/Nose/Throat: Negative Mouth/Teeth: Has no teeth Neck: No pain or stiffness CV: Denies chest pain, pressure, palpitations Respiratory: Some smokers cough in the morning, denies dyspnea, hemoptysis GI: No N/V/D/C or rectal bleeding : Negative Musculoskeletal: C/O back spasms and cramping pain when he stands for an extended period of time Endocrine: No polyuria, polydipsia; does feel cold a lot Lymphatic: Has not noted any enlarged nodes Hematologic: No unusual bleeding, bruising Neurologic: Has numbness around his lips and in the LEs Musculoskeletal: C/O cramping, spasms of pain in his whole back when he is standing for any extended period of time Immunologic: CD4 count has persisted at very low levels, he is at great risk for more OIs in addition to the dMAC and esophageal candidiasis. His AIDS has been long standing. Psychiatric: Has some Anxiety, Depression, no panic or SI/HI Allergies/Sensitivities: NKDA Current Medications: - HIV medications: He says he has not been taking Norvir (ritonavir) because it is in powder form. He never got the pills. He says he is taking the Prezista, cannot remember the names of the other 2 HIV medications he is prescribed. (Truvada & Tivicay) - dMAC Tx: It has been three months or so since he last had refills of and says he took the ethambutol and clarithromycin. - AIDS OI prophylaxis: He says he has the ?banana flavored liquid? and did restart it about a month ago. It had not been filled since Aug 2019. Renewal of this was called to the pharmacy 28 days ago. The pharmacy says he did not pick it up. - Nystatin but did not get the Fluconazole at the pharmacy when he went to get it - RXs from his PCP: Zofran, Gabapentin, Boost ultra 2 cans a day - MAT for severe OUD: methadone 70mg a day. Medical / Surgical History Update: Nothing new Psychiatric History Update: Has not seen a psychiatric provider for a few years. Did have care provided at one time by the HIV clinic psychiatrist and had a prescription for an antidepressant. Social History Update: He is living in his own apartment with his dog. Stays there and his parents deliver food to his door step due to physical distancing recommendations by public health during the SARS-CoV-2 pandemic. Employment: not employed Health Insurance: active Medicaid Substance Use: no illicit drugs, Tobacco: 1 ppd, ETOH: None Family History Update: Nothing new Immunization Needed? UTD; Health Maintenance: sees his PCP every couple months OBJECTIVE Height: 5?1? Weight: 78#, was 83# 2 weeks ago, Temp: 97.6 Pulse: 86 Respirations: 16 Blood Pressure: 106/60 General: frail, ambulatory INAD Skin: generally he is pale, there is a hyper-pigmented scale with striation on his trunk mainly laterally (photos taken for his MD). White patches with underlying erythema at the corners of his mouth. Head: normal cephalic Neck: supple, non-tender Eyes: non-icteric Mouth/Throat: Mild erythema with scant white exudate, uvula midline, no edema Lungs: Clear CV: RRR no MCRG Psychiatric: - appearance: frail, well dressed for weather - eye contact: good - attitude: cooperative - speech: clear, coherent; normal pressure, ernesto, inflection, full sentences with no breathlessness - affect: normal - mood: mildly depressed - memory: has some memory lapses i.e.: medications - self-perception: ? some dissociation - motor activity: normal - orientation: intact - attention: good - thought content: organized - perceptions: unrealistic - judgement: impaired - insight: limited Lab work results shows a loss of T cells ? now 28, reported on D/C last January they were in the 48 range. Had been as low as 5 prior to admission last year. He has abnormal morphology of cells on analysis of his CBC. The AFB culture grew out microorganisms presumed to ne MAC but final analysis is not available at this point. A phone call check in with the pharmacy, [facility], , and Mario has not picked up the Ritonavir tablets that have been waiting for him. He picked up the Prezista last on December 18, none since, the Truvada and Tivicay have not been picked up for a few months and he also did not sisal picker the Bactrim. 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 He was supposed to have monthly ophthalmology appointments when he was taking the ethambutol for the dMAC and went once. He was diagnosed w d MAC over a year ago, had the protracted hospitalization and splenectomy, and weighed 65# after the surgery and placing of the j-tube. He recovered weight after j-tube feedings 24 hours a day along with eating. Mario decided to have the j-tube removed without consulting with any of his physicians or the registered clinical dietitian. He did not have a follow up visit with his HIV physician after this was removed. A home visit was done in July by me and he was 100#. He avoided phone calls and did not sisal picker for a scheduled follow up conversation with Dr. Muller who tried to call him three times. MD visit scheduled: Tele-health appointment Sunday, March 01, 2020 at 1:00pm and he agrees to this Lab work ordered: Will need to have more follow up lab work if he agrees and that will be done after he discusses next steps with Dr. Muller. Provider of Care: Julieta Torres, MSN, INSOLE TAPER
== END 2020-02-06 17:15 ==
PROVIDERS: PCP Family Medicine; Visit Provider Nurse Practitioner Family
DX: B20 Human immunodeficiency virus [HIV] disease (principal); Z79.899 Other long term (current) drug therapy; A31.2 Disseminated mycobacterium avium-intracellulare complex (DMAC); R64 Cachexia; B37.81 Candidal esophagitis; R11.2 Nausea with vomiting, unspecified; F32.9 Major depressive disorder, single episode, unspecified
CPT/HCPCS: 99347

== ENCOUNTER 2020-02-23 10:35 | Outpatient (CLI) | payer MEDICAID, SELFPAY ==
--- NOTE | 2020-02-23 10:39 | CCCE_ITS ---
Date of service: 02/23/20 Time of Service: 10:40 Comprehensive Care Clinic Note Note: [facility] [address] [place] [address] [facility] of [facility] Visit for Medical Follow Up Name: Jason Rubalcava Date of : 1990 Primary Care Provider: Freddy Shane MD Date of Service: 02/23/2020 SUBJECTIVE CC: This is a telehealth follow up for the oral/esophageal candidiasis Mario has had for the past few months and he has now been taking the Fluconazole for over 2 weeks. HPI: Mario had advanced AIDS with a CD4 count done last month showing 28 T cells and a percent of 3. This was the first blood work he agreed to have done since he was D/Cd from a protracted hospitalization 1 year ago which resulted in splenectomy due to dMAC OI. He had become non-compliant not only with follow up visits and the lab follow ups but also with the medications he was prescribed. When he was D/Cd last January he weighed 85# (65# after the splenectomy!) and had 24 hour a day nutritional support via a J tube. He got up to 100# or so but elected to have the J tube removed by a surgeon in [place] and has lost weight since, weighing 73# 2 weeks ago. He says he has not weighted himself since that weight. He says he is taking the ART now and the Fluconazole daily and all signs and symptoms of the candidiasis are gone. He is swallowing well and has been taking more food and the 2 extra nutrition Boost a day. His birthday is today and he is planning a big [place] food supper which he will eat virtually with his parents. He agrees to have a telehealth follow up visit next week with Dr. Muller and me to discuss his medications, what could be simplified and what the ramifications of that would mean since he self D/Cd the MAC treatment at least 3 months ago and only had one of the ordered monthly ophthalmology dilated exams the whole time he was taking the ethambutol. He had done well as far as adherence to taking the Biktarvy and Proscobix prior to the admission but these medications were changed due to the interaction profile with the MAV medications. ROS Constitutional: Denies fever, Fair energy, fatigues very easily, says appetite & sleep are OK. Weight as above. Skin: Has some rash remaining on his trunk that appeared to be fungal 2 weeks ago during in person follow up home visit. Head: Denies trauma, head pain Eyes: Denies visual disturbance Ear/Nose/Throat: Negative now Mouth/Teeth: Denies remaining white exudate and soreness Neck: No pain or stiffness CV: Denies chest pain, pressure, palpitations Respiratory: Some smokers cough in the morning, denies dyspnea, hemoptysis GI: Chronic N/V for which his PCP gives him daily Zofran, No diarrhea. Abdomen: Continues to have abdominal pain which he describes as reproducible with certain movements and is located near the lap scar from his splenectomy. : Negative Musculoskeletal: Denies joint or back pain Endocrine: No polyuria, polydipsia; heat or cold intolerance Lymphatic: Has not noted any enlarged nodes Hematologic: No unusual bleeding, bruising Immunologic: CD4 count has never been below 200, no risk for OI Psychiatric: Denies Anxiety, states he does have Depression but no SI/HI Allergies/Sensitivities: NKDA Current Medications: Prezista, Ritonivir, Tivicay, Truvada, Bactrim, Fluconazole, Zofran, Gabapentin Medical / Surgical History Update: Nothing new, HIV is congenital Psychiatric History Update: It is his birthday today and he feels upbeat about it. Social History Update: Remaining in isolation with his dog at his apartment due to Covid19 pandemic. Employment: No Health Insurance: Medicaid Substance Use: MAT w methadone for severe OUD Tobacco: 1 ppd ETOH: none Drug Use: no illicit Family History Update: Nothing new Immunization Needed? UTD Health Maintenance: Sees his PCP monthly OBJECTIVE Due to telehealth no vital signs or weight today. Will check in with a weight at the methadone clinic in a couple weeks. General: He is frail appearing but AAOx3 and appears to be in no distress. Skin: pale appearing Eyes: non icteric Psychiatric: - appearance: frail - eye contact: good - attitude: cooperative - speech: clear, coherent, no breathlessness - affect: normal - mood: euthymic - memory: seems intact - self-perception: not realistic - ? Dissociated - motor activity: appears normal - orientation: oriented to person, place and time - attention: intact - thought content: normal - perceptions: normal - judgement: impaired - insight: poor ASSESSMENT/PLAN HIV/Advanced AIDS ? w multiple OIs and wasting, non-adherent to prescribed medications numerous times over the many years he has been alive with this. Now he says he is taking the HIV medication and PCP prophylaxis and the oral/esophageal candidiasis is improved. He is to continue all these medications without missing any and a F/U will take place with his ID physician next week to discuss simplifying his medications particularly since he self D/Cd the dMAC medications and never had the proper ongoing screenings for the toxic effects that can develop with those medications, particularly the ethambutol. Will have a weight done the next time he goes to the MAT clinic in [place]. MD visit scheduled: 03/01/2020 at 9pm for an hour. Lab work ordered: next lab work will be decided next week with Dr. Muller Provider of Care: Julieta Torres, MSN, CLIENT SUPPORT CONSULTANT
== END 2020-02-23 10:55 ==
PROVIDERS: PCP Family Medicine; Visit Provider Nurse Practitioner Family
DX: B20 Human immunodeficiency virus [HIV] disease (principal); Z79.899 Other long term (current) drug therapy; R64 Cachexia; B37.81 Candidal esophagitis
CPT/HCPCS: 99213

== ENCOUNTER 2020-03-05 06:00 | Outpatient (CLI) | payer MEDICAID, SELFPAY ==
--- NOTE | 2020-03-05 14:08 | CCCE_ITS ---
Date of service: 03/05/20 Time of Service: 06:08 Comprehensive Care Clinic Note Note: This is a home visit in [place] for Prasanth for a weight and to check on status of adherence to medications as well as to have him sign ROIs for [facility] ID and palliative care. Prasanth states that he is taking the medications as Dr. Muller has prescribed, he still has AM nausea and is taking the Zofran as RXd by his PCP, Dr. Ocasio. Prasanth had been RXd BOOST Breeze, a fruit juice type, high protein nutritional supplement but it has been months since he last had it. On a tele-health visit with Dr. Muller this past Sunday it was stressed how important this is to try to regain some of the weight that has been lost since the fall. (His lowest weight was 65# p Spelectomy in December 2018 but with a j-tube he gained up to a weight of 100#. A PA was done this week for the BOOST Breeze nutritional supplement and a prescription was sent to [email or web address] in [place] but they called and said that their distributor was unable to get this product and if Prasanth wanted to get it at their pharmacy, it would have to change to the vanilla, chocolate or strawberry shake. Prasanth will not drink these and so all his RXs will have to be changed to [facility] in [facility] as their distributor has this particular product but they will not order just this without the other RXs for the patient being filled through their pharmacy because they loose money on BOOST products. O: Prasanth is Ambulatory INAD, AAOx3, his weight is 75#. Skin is pale, W/D. Oral exam w/o exudate but some erythema remains. A/P Advanced AIDS with wasting and oral/esophageal cadidiasis OI No change in medications and restart the nutritional supplement AMANDA. Prasanth agrees to have his RXs changed to [facility] in [place] and Dr. Muller will call that pharmacy and transfer the RXs that he prescribes including his HIV medications, the Bactrim and the Fluconazole. The BOOST RX will be faxed to the pharmacy from [facility] in [facility] along with a copy of the PA Approval. Prasanth will have a f/u tele-health visit this coming 03/08/[address] Muller and this provider. There is a plan for him to also have a tele-health visit with Saskia Simental NP of [facility] palliative care on 03/10/2020. prasanth says he has received the links for the visits and has the capabilities to attend. Julieta Torres NP
== END 2020-03-05 06:20 ==
PROVIDERS: PCP Family Medicine; Visit Provider Nurse Practitioner Family
DX: B20 Human immunodeficiency virus [HIV] disease (principal); Z79.899 Other long term (current) drug therapy
CPT/HCPCS: 99347

== ENCOUNTER 2020-04-02 06:00 | Outpatient (CLI) | payer MEDICAID, SELFPAY ==
--- NOTE | 2020-04-05 15:52 | W.CCNOTE ---
Date of service: 04/02/20 Time of Service: 06:00 Comprehensive Care Clinic Note Note: Seen at 6am today at Home in [place], [place] CC: Over past week I feel much worse. HPI: Prasanth has advanced congenital AIDS with a recent switch to a 2 tablet a day HIV ART w fewer side effects that he has been tolerating well and not missing doses since the switch as before he was missing weeks and months of some of the medications and it was confusing for everyone. He was also DX w dMAC last year before a protracted 3+ month hospitalization w resultant splenectomy and the need for at least a year of anti MAC Tx and the needed screening due to potential of toxicities of these medications. He had gained weight after the splenectomy when his weight was down to 65 # and the highest recorded weight we have is in July 2019 when he was 101 #. He had a j-tube in place from the time of admission in Sep until he unfortunately had a surgeon in [place] remove it in May. he had no showed for lab work from D/C in January 2019 and follow up appointments just prior to the j- tube removal. He has agree to secure [employer] tele-health meeting with Dr. Muller of [facility] and follow up home visits with me. 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 His addiction MAT is stable. He does not think he is vomiting up any of his medications he thinks. He has a [employer] Orders tele-health appointment with Courtney Jin NP of [facility] to discuss DNR/DNI further than we have already and to get an updated Advanced Directive on his chart as the one he did at [facility] in [place] last year is no on file. He says he just wants to be comfortable and does not want to have another protracted hospitalization. I want to be home. ROS: -Costitutional: I know I lost more weight. I'm so weak. I have a lot of pain. No fever, chills, night sweats -No mouth sores/sore throat, swallowing fine -Denies headache -Denies visual changes -REED -No cough, hemoptysis -Has palpatations, no syncope but I feel like I'll pass out when I get up. -Hungry but p 3 bites - pain, tight, bloating; worsening x this past week of chronic nausea/vomiting despite zofran. Trying to eat my favorite foods which are complex sandwiches and deep fried Bengali food -Urinary frequency, urgency, oliguria, no dysuria -Right flank pain, increasing overall back pain -Sacral pain, no skin break down -No rashes -No swelling -Constipated, no tarry stools/bloody stools -Psych- I feel like I'm just sitting in my apartment waiting to . I feel so bad but don't want to go to the hospital and never leave. I'm supposed to move back into my parent's home but not until the end of April because that's when my brother is moving out. My other brother and his are moving out on 04/04, but my brother who is staying another month doesn't want me there. I have a dog and I smoke he says. I don't think I can make it that long. He can see I'm sick but I guess doesn't care. I don't have anyone except my parents. MEDICATIONS: Taking Biktarvy, Proscobix, Bactrim, Fluconazole, Zofran, Methadone - thinks all have stayed down daily. Smoking 1/2 - [address] ppd [address] etoh or street drugs, no OTC drugs, herbs or supplements OBJECTIVE: Weight 62 Temp 98.4, P 110, R 22, BP ? 88 (cuff too big for arm or leg) AAOX3 Very cachectic, tachypnic Ambulatory w slow haunting gait Collapses into chair Oral/pharynx clear Neck supple Chest/lungs clear CV: tachy rate, normal rhythm Skin W/D, pale, turgur poor, no rash, erythema over sacrum, no open areas No edema Tender abdomen initially soft, unable to palpate due to pain, reflex rigidity + R flank tenderness Unable to give urine ASSESSMENT/PLAN: 1. HIV/Advanced AIDS: To continue the Biktarvy and Proscobix 1 each daily. We do not know his viral load as it was not done as requested a month ago and has not been repeated since the switch of ART a few weeks ago. I will see if Prasanth will let another blood draw happen in a couple weeks, soon if he does go to the hospital. 2. Right Flank pain w urinary symptoms and S&S of dehydration. I suggested he may have acute pyelonephritis -kidney infection on top of everything else - and since he seems to be very dehydrated, going to the ER for urine check and hydration might help him feel better. 3. Worsening pain. He said he wants something for pain. Methadone 70mg/d keeps him out of WD but does not treat the pain. he will be consulting with the palliative care VOCAL TEACHER this morning and I will request she explore this with him. If deemed appropriate, I would RX for q 8 hour Methadone - the 70 mg in the morning and then 8 hours later 20 mg with another 20 mg 8 hours after that so he would be getting MTD q 8 hours to a total of 110 mg a day. he has a high tolerance and since he is not getting any relief from the once daily MAT dosing would need the increase and q 8 hour prescribing. he may also need Hydromorphone 2 mg bid prn if he were to get increasing break through pain but will evaluate how he is doing with the additional MTD prior to RXing for this. Again he is stable from an addiction point of view but would want to moitor this closely. 4. cMAC - untreated at this point and it seems likely that this chronic infection will continue to escalate and most likely result in . 5. Asplenic: He is UTD w all post splenectomy vaccines. He had Augmentin and knows to start taking it if he gets fever and to go immediately to the ER. Unfortunately his immune system is so damaged that he may not get fever. 6. Severe wasting: he is down to 62# now and I have suggested some of the loss my be marked dehydration. He should go get some IV fluids, It is hot out and supposed to be hot and humid this weekend. he has air conditioning and will try to drink small amounts every 10 minutes or so to rehydrate and keep it down w/o bloating. he is taking the BOOST Breeze supplements and can try to increase these as part of the re-hydration as they are high protein. I suggested he eat softer, more easily digestable food such as yogurt, watermellon and other fruits, eggs, oatmeal, ice cream, sherbert or popcicles if he likes them. he thinks this is a good idea. He says he will be on the call at 11 w Courtney Jin NP. He agreed he wants to be home, kept comfortable and no protracted hospitalization. He understands that advanced directive, palliative/hospice care will be needed. I will check in with him on 04/05/2020 Addendum: Phone Call to prasanth this Morning, 04/05/2020 at 10 AM Prasanth had a good conversation with Courtney Jin NP of palliative Care/Hospice at [facility] and is having DNR/ DNI directives set up. he will be having another conversation with her this week. We discussed that I had some email exchanges with Courtney about Pain control and we have a plan to initiate pain control and monitor it with adjustments as needed. After discussing this pplan, Prasanth agrees staing he is feeling a little better now that he has changed his diet and is eating a little more, a litlle more frequently without as much pain and bloating. he is keeping down more fluids - small amounts more frequently. he says he did not go to the ER and will this week if he still has flank pain and more nausea w some vomiting again. That has stopped since Sunday. he still has no fever, chills. Addition to the Plan: Methadone dosing q 8 hours. he is to continue the 70 mg MTD in the slip injector and applicator w/o change, then every 8 hours after that take 20 mg MTD po - RX taken to [facility] in [place], [place]. Then every 24 hours start this regimen all over. RX written for METHADONE 10 mg tablets - #$$, 2 po bid as instructed. A check inon Sun with a phone call to Prasanth for a Status report will be made. Julieta Torres NP
--- NOTE | 2020-04-19 13:22 | W.CCNOTE ---
Date of service: 04/14/20 Time of Service: 17:22 Comprehensive Care Clinic Note Note: Follow up Telehealth Visit ? [facility] of [facility] Name: Jason Rubalcava : 1990 Date of Service: 04/14/2020 PCP: Anisha Ocasio MD SUBJECTIVE CC: Phone call check in with Prasanth for status in pain control and appetite/weight loss. HPI: prasanth and his Mother are traveling to [facility] tomorrow to have a family visit with Nico Muller DO, Prasanth?s infectious diseases specialist and Courtney Reyes NP of Palliative/Hospice care there in [place]. He started the extra methadone a week ago and says it is helping a lot but at the end of the afternoon and nighttime doses he is getting some breakthrough pain. It is located mainly in this abdomen and back but also other joints. 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 He feels the addiction is stable and he is taking the medications as prescribed ? not over taking it and then running out. He gets 13 days of Take Home doses from the methadone clinic and only has to go on that 14 day to face to face dose. He is feeling so much weaker not that he is relieved to know that he is able to get his 14th day dose in his car and have the Take Homes brought to him. 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 He says he been continuing to have early satiation ? ?I can?t eat more than a few bites at a time? ? but is drinking the Boost breeze at least bid. He feels he is staying hydrated. He has moved into the small bungalow attached to his parent?s home. He is relieved to be there and not have to negotiate steps. He says the area on his buttocks is still sore and he will be talking with his PCP, Dr. Ocasio about this as he wants an appointment to see him to be set up soon so he ?knows what is going on?. Prasanth is aware that Dr. Ocasio will be contacted by Dr. Muller as well. ROS: Pain seems to be worsening but characteristics of it are unchanged. He denies fever, chills, is still taking the Zofran for N/V which helps, says BMs are scant but no diarrhea. He denies swelling, numbness. He has not fallen. Social History Update: Moved into his parent?s home. Has his dog. Health Insurance: [employer] approved for the methadone for pain and he is getting it at [facility] in [place] where he gets the Boost Breeze and his other RXs. 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 Tomorrow?s meeting is to discuss goals, DNR/DNI and COLST and approach the discussion about Hospice which will be coordinated with his PCP when the time comes. OBJECTIVE This is a telephone follow up and Prasanth?s voice is quite strong, steady and he is speaking in full sentences without any detectable breathlessness. No PE ASSESSMENT/PLAN dMAC progression and worsening pain. Will add MSO4 IR 30 mg tabs 1 tab bid for the breakthrough pain after consultation tommy Reyes NP of Palliative care. visit: Tomorrow, I have set up a home visit for Sunday04/30/2020 Provider of Care: Julieta Torres NP Date: 04/15/2020
== END 2020-04-02 06:20 ==
PROVIDERS: PCP Family Medicine; Visit Provider Nurse Practitioner Family
DX: B20 Human immunodeficiency virus [HIV] disease (principal); Z79.899 Other long term (current) drug therapy; A31.2 Disseminated mycobacterium avium-intracellulare complex (DMAC); R64 Cachexia; M54.5 Low back pain; E86.0 Dehydration; G89.29 Other chronic pain; F11.20 Opioid dependence, uncomplicated; Z66 Do not resuscitate
CPT/HCPCS: 99348

== ENCOUNTER 2020-04-30 15:28 | Outpatient (CLI) | payer MEDICAID, SELFPAY ==
--- NOTE | 2020-04-30 15:36 | W.CCNOTE ---
Date of service: 04/30/20 Time of Service: 06:36 Comprehensive Care Clinic Note Note: CC: Mario is seen at home today due to terminal illness deterioration and weakness from adnvanced HIV/AIDS and dMAC so profound that as we entered is home he stated I can't walk this morning. He states that he is waiting for a hospital bed with an alternating air mattress because the couch he is sleeping on in a room that is part of an extension to his parents' home is so soft that it takes all of his energy to get up and off of it to walk to the bathroom. The bathroom is located through the room next to his room and down a brush. He says up until earlier this week his cane was assisting him but by 3 days ago the weakness and numbness in his legs was so profound that he could barely make it with the cane. He feared falling and not being able to get up. He says that if he calls his Mom on the phone, she will come and help him. He has some access to his sister's wheel chair who is staying in the room next to his and his family is using it now to help him get to the bathroom if needed. 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 He had a protracted hospitalization last year for the dMAC and severe splenomegaly w infarction, underwent a splenectomy and was D/Cd on HIV ART and dMAC medications w a feeding tube w 24 hour tube feedings for his severe weight loss and wasting. He self initiated the D/C of the feeding tube with a surgeon in [place] last fall, stopped the dMAC medications in the winter when the pharmacy just stopped sending them even though he had been told he would need them for at least a year and perhaps the rest of his life, and by the beginning of 2019 he was not taking all of the HIV medications. He had refused to get blood work done and the last was prior to his D/C from the hospital in January of 2019. He no showed for follow up w his HIV ID physician, Dr. Jimmy Muller, a number of times and the last he was seen by him was 05/2019 until he had a tele-health visit with him in February. During that encounter the decision was made to change his HIV medications back to Biktarvy and Procobix to simplify his regimen could be reinstated because he did not want to go back on the complicated medications for the dMAC that would require monthly ophthalmology dilated eye checks and frequent blood work. The conversation about DNR and going on palliative care was initiated then. He had a consult with a palliative/hospice nurse practitioner, Courtney Reyes, at [facility] on 04/15/[address] Muller, Mario's Mother who drove him there and his sister, who lives in [place] and was on speaker phone. At that meeting Mario made it clear to everyone that he did not want aggressive treatment and wanted to be kept comfortable. He signed a DNR/DNI COLST at that meeting and copies of it were sent to his PCP, Dr. Amarjit MD, of [facility] as well as to the [facility] in [facility], Dr. Muller's satellite clinic [facility] the [facility]. Dr. Muller had a phone conversation with Dr. Ocasio that day and care coordination was begun. Home Health VNA nurses where ordered to tend to the developing decubitus ulcer and the understanding by Dr. Ocasio, his office staff and the VNA was that Mario needed to tell them when he was ready to start palliative/hospice care. During a phone conversation with Mario this past Sun - (2 days ago) - I asked if the palliative/hospice care program had been set up as they would be sure a hospital bed was in the home right away. Mario did not know the status of this but told me that his home health nurse said if he was connected with palliative/hospice care at [facility], then he would not be getting care from their agency. This led me to think there was confused messages from and to Mario. At one point Mario said to his home health nurse that he was not ready for that meaning hospice, at another point he voiced I just want to stay home thinking if he went on hospice he would have to be admitted and taken somewhere else. A long discussion today has clarified for him that care would be brought to him in his home and he agrees to have this start. ROS: Profound weakness, fatigue and malaise - sleeping a lot; Some chills - none that sound like rigors, Denies headache, Seeing double sometimes watching TV- no loss of vision, feels short of breath but minimal cough that is non productive, Has palpitations when he moves or tries to stand up, +GI distress & says he is hungry but after a few bites, gets bloating and gas pain, no vomiting,trying to drink small amounts frequently, BMs scant; Numbness in both legs and the neuropathic pain symptoms have abated with Neurontin 100 mg tid started last Sunday, swelling of his feet has not gotten worse. Denies any falls. Says the pain is still present but much better with the MSO4 and extra methadone. Allergies: Haldol is listed in his record at PCP - ? reaction Medications: (thinks he is getting all the medications as prescribed daily) methadone 60 mg 6 AM, 20 mg 2 pm and 10 pm MSO4 IR 30 mg tid for break-though pain which he says he is taking Neurontin 100 mg tid Biktarvy 1 daily Procobix 1 daily Bactrim Liquid 20 cc daily fluconazole 100 mg daily Reglan as RXd by his PCP Zofran 4 mg SL tid prn - may have been D/Cd He had been given one dose of Ativan at the ER when he went there on 03/28/2020, for panic attack and a prescription for 0.5mg which he has been taking 1 tab tid. Psychosocial: Living at his parents now and his dog, Teresita, is there with him but Mario states I am very alone and I hate it although to be sure he was more alone in his apartment before moving to his parents home. His family helps him when he asks for it. Friends have been visiting him each morning, staying for extended visits and helping him and they came soon after I left today. When I called they said they would stay with Mario until the visiting nurse came. His BAART counselor is returning to his home today to bring him two body pillows for better positioning. After contacting Dr Hernandez's office, talking with his nurse and then calling the [facility] and talking with Peggy Webster RN, there will be a hospital bed delivered today and hospice care has been ordered and will be instituted. Substances: Mario is smoking MJ daily which he states helps with appetite and his anxiety, his mobility difficulties have prevented him from going out on the porch to smoke tobacco which he is not allowed to smoke in the house. No ETOH or illicit drugs. Objective: Weight <55#, was 62# 2 weeks ago; T: 97.6, P: 114 apical, R: 22 and shallow, BP: unable to take due to no cuff that will fit his shrunken arm. Marked cachexia, marked difficulty adjusting his position on the couch, needs help to sit up and to be lifted with continuous support to stand for weight. Face w seeming complete loss of muscle structure + icteris, tearing, no scleral erythema, pupils 5 mm, EOMI Mouth w some exudation, no erythema, adentulous adding to sunken face appearance Neck supple Chest with BS clear and heard at the bases CV: Tachy R&R but regular, normal S1, S2, no rub Abdomen distended and tender, unable to determine any OGM Marked muscle wasting + slight yellowing on the skin w no notable rash seen, sacral decub bandaged and not visualized Need for a lot of help to sit up and to stand on the scale A/P: 1. End Stage HIV/AIDS and Opportunistic Infection disseminated MAC - many phone calls to coordinate his care and now has Hospice set up and today services will begin. A hospital bed with an alternating air mattress will be delivered later today. No change in his medications at this time and new Rxs given for the methadone 10 mg tabs to take 2 tabs bid as instructed, MSO4 IR 30 mg tabs to take tid as needed for breakthrough pain. Will call Mario daily for status check and make another home visit as needed. BOOST Breeze for calories and hydration and to continue taking three cans a day as well as Pedialyte and solid food as tolerated. 2. Severe OUD w stable MAT now with q AM methadone at 60 mg a day - brought to him today and he F2F dosed with this nurse practitioner and a chain of custody was signed for the #13 bottles for daily dosing the next 2 weeks. Take all the pain medications as ordered and do not over take the medication so not to run out or OD. He states he is not suicidal and will take the medications as ordered. Julieta Torres NP
== END 2020-04-30 15:48 ==
PROVIDERS: PCP Family Medicine; Visit Provider Nurse Practitioner Family
DX: B20 Human immunodeficiency virus [HIV] disease (principal); Z79.899 Other long term (current) drug therapy; F11.20 Opioid dependence, uncomplicated; Z51.5 Encounter for palliative care
CPT/HCPCS: 99348

== ENCOUNTER 2020-05-07 13:55 | Outpatient (CLI) | payer MEDICAID, SELFPAY ==
--- NOTE | 2020-05-11 14:02 | W.CCNOTE ---
Date of service: 05/07/20 Time of Service: 14:00 [facility] Note Note: Follow up Home Visit for patient now on Hospice through [facility] 45 minute visit with phone follow up x 4 days after it. Name: Jason Rubalcava : 02/22/1970 Date of Service: 05/07/2020 PCP: Freddy Ocasio M.D. CC/HPI: Mario was officially admitted and has the hospital bed now (since 05/04/2020) and hospice nurses and nursing assistants are coming regularly. He has been overtaking the MSO4 due to bone pain which is mainly originating from the disseminated MAC opportunistic infection. His HIV medications have been D/Cd as he can no longer swallow them. He is taking the AM dose of Liquid MTD 60 mg po but has missed doses of the afternoon or evening MTD 10 mg pills, 2 tabs po 2 times a day ? afternoon and evening, due to sleeping. His family, particularly his Mother, is looking forward to 4 of his 5 sisters coming to visit this weekend. Mario is also looking forward to visiting with them as he can but realizes he will not be able to get out of the hospital bed to go much farther than the bedside commode and will need a lot of help at this point to be able to do that. He says he is having some episodes of feeling short of breath and hearing rattling in his chest. He is not coughing much and there is no smoking or second hand smoke at this point. He is taking in H2O and the Boost breeze for hydration but eating very little due to bloating when he tries to eat. He says he was hungry yesterday and ate Estonian too fast and vomited. We discussed eating soft, easy to digest foods slowly and in small portions frequently. Once again he agrees this works best. He is sleeping a lot and also able to sleep through most of the night. He is taking the Lorazepam tid now and it is quelling his anxiety. When asked if there was anything in particular he wanted to talk about, he weakly said No... Obj: Last weight on 04/30/2020 was 55# and unable to stand for weight today. Pulse 112, R 22, Unable to do BP due to no cuff that will fit his emaciated arm as he is now so very severely cachectic, lying in bed with the head of the bed slightly raised barely able to raise his head up off the pillow. Brief periods of eye contact, voice very weak with halting speech. Skin W/D, jaundiced, hanging on his frame. Mouth w scant white exudate and mild erythema - no open areas. Lungs wet at the bases. Trace edema of his feet. A/P: He is coming to the end of his life and needs more comfort measures. He cannot be left alone. The MSO4 IR 30 mg tabs may be increased from q 8 hours for breakthrough pain to q 3-4 hours but I want the MTD 20 mg 8 hours after his AM dose of 60 mg and then another 20 mg 8 hours after that to be given regularly even if he thinks it is not doing anything for his pain. He agrees to take it. I will call to check in with him each day over the weekend and perhaps make another home visit on Sunday. He agrees with this plan as well. Julieta Torres MSN, [employer] (SGT) Addendum: - 05/08/2020, Mario answered the phone and we had a brief conversation. His voice was so weak it was unintelligible at times. He said his pain was OK and the hospice nurse would be arriving soon. He will have her call me if there are any questions or further requests. SGT - 05/09/2020, Mario did not answer his phone and no message could be left as the voice mail box was full. Hospice knows to call me with updates, requests or if Mario dies. SGT - 05/10/2020, Mario did not answer the phone again this morning and still no way to leave a message on it. He in the late afternoon this day, the exact time I do not have but know that after his Hospice nurse left her daily visit with him, he began to have trouble breathing, the family called Hospice and when the nurse arrived back at the home, she learned Mario had stopped breathing shortly after the family had called. He was pronounced and the Hospice nurse removed all of the medications, controlled and others, from the home to be destroyed. -Sunday, 05/11/2020, Mario's Mother is contacted by phone and verifies all the narcotics and the rest of the medications were removed from the home by the hospice nurse. Mario will be cremated per his wishes. There will be a confucianist service for Mario but the date has not been set. His Mother expressed sadness but also relief that he is no longer suffering. Julieta Torres, MSN, [employer]
== END 2020-05-07 14:15 ==
PROVIDERS: PCP Family Medicine; Visit Provider Nurse Practitioner Family
DX: B20 Human immunodeficiency virus [HIV] disease (principal); Z79.899 Other long term (current) drug therapy; A31.2 Disseminated mycobacterium avium-intracellulare complex (DMAC); R64 Cachexia; Z51.5 Encounter for palliative care
CPT/HCPCS: 99348